=== PATIENT | male | born 1990 | race Caucasian/White ===

== ENCOUNTER 2024-09-14 18:24 | Emergency (ER) | payer OTHER, SELFPAY ==
[2024-09-14 18:30] VITALS: BP 138/91
--- NOTE | 2024-09-14 19:02 | ED.GENMED ---
History of Present Illness
General
Chief Complaint: Musculo-Skeletal Complaint
Source: patient
Exam Limitations: none
Time Seen by Provider: 09/14/24 18:50
History of Present Illness
History of Present Illness:
See MDM
Past History
Past History
ED Past Medical History: None, Psychiatric and Other
ED Past Surgical History: Other (Umbilical fistula)
Social History
Tobacco: Non-smoker
Alcohol: None
Drug: None
Personal: Other
Living: with family
Employment: Employed
Family History
Family History: Other
Phy Exam
Physical Exam
Physical Exam:
See MDM
Course
Orders/Labs/Results
Orders:
Orders
09/14/24 19:01
Cyclobenzaprine HCl [Flexeril] 10 mg PO NOW STA
Cervical Spine 4 or 5 Vw [CR Cervical Spine 4 Or 5 Vw] Urgent
Comment:
Reason For Exam: posterior neck pain
Vital Signs
Initial and Last Documented VS:
Initial Vital Signs
Temp Pulse Resp BP Pulse Ox
98.1 F 75 16 138/91 98
09/14/24 18:30 09/14/24 18:30 09/14/24 18:30 09/14/24 18:30 09/14/24 18:30
Last Documented Vital Signs
Temp Pulse Resp BP Pulse Ox
98.1 F 75 16 138/91 98
09/14/24 18:30 09/14/24 18:30 09/14/24 18:30 09/14/24 18:30 09/14/24 18:30
MDM/Problems Addressed
Differential Diagnosis Includes:
HPI and MDM Narrative:
33-year-old male presenting for evaluation of posterior neck pain. This occurred Thursday after he did heavy lifting. [place] the day, he noticed worsening pain. He did have 1 episode where the pain was tingling in his right arm. Motrin and ice are
helping somewhat.
On exam, there is spasm to his right paracervical musculature. There is no anterior neck pain. He has no neurodeficits in either upper extremity. Will give dose of Flexeril
Physical exam
General: Well appearing and non-toxic
HEENT: protecting airway
Neck: supple. Mild tenderness to right paracervical musculature
CV: No evidence of cyanosis
Resp: No accessory muscle use
Abd: Non-distended
Extremities: No deformities. Both arms are neurovascularly intact with 5/5 muscle strength
Neuro: alert
Psych: Normal affect
Skin: Intact
Problems Addressed including Acute and Chronic Conditions affecting care:
1. Cervical radiculopathy
Acuity: acute
Prognosis: stable
Details: Will obtain x-ray and start Flexeril. Patient states he set up appointment with [facility] in 3 weeks
Updates
Cervical x-ray negative. Patient feels comfortable going home
Differential Diagnosis (but not limited to): Neck spasm, cervical cardiopathy, herniated disc
Testing considered: EKG but this appears musculature
Drug therapy (if applicable): OTC meds, please see d/c instruction regarding Rx drugs
Amount and/or Complexity of Data Reviewed
Clinical info obtained from: Patient
External data reviewed: N/A
Labs I independently reviewed (but not limited to): N/A
Radiology: x-ray independently reviewed: Cervical x-ray negative
Pulse Ox: not hypoxic
EKG independently reviewed: N/A
Nuclear Worker Technician: N/A
Critical Care: N/A
Risk of Complication:
Social Determinants of health: Good social support
Discussed with other providers: N/A
Escalation of Care includes Admit/Obs: After being observed in the Emergency Department, pt stable for discharge.
Occasional wrong word or 'sound a like' substitutions may have occurred due to the inherent limitations of voice recognition software. Read the chart carefully and recognize, using context, where substitutions have occurred.
*Critical Care Note
Total Time (30-74mins, 75-104mins- exclusive of procedures): Not Applicable
ED Attending Note
-
Portions of this chart may have been created with voice recognition software.� Occasional wrong word or��sound alike� substitutions may have occurred due to the inherent limitations of voice recognition software.
Discharge Plan
Departure
Patient Disposition: Home (Routine Discharge)
Date of Disposition: 09/14/24
Time of Disposition: 20:16
Patient with high blood pressure during this ER visit?: No
Discharge Problem:
Cervical radiculopathy
Instructions: Radiculopathy (DC)
Prescriptions:
New
metaxalone 800 mg tablet
800 mg PO TID PRN (Reason: muscle pain) Qty: 14 0RF
Activity Restrictions/Additional Instructions:
Please return for any worsening symptoms.
You may return at any time if you have further concerns.
Please follow up with your doctor at the first available appointment, preferably this week.
Please keep your orthopedic appointment if symptoms persist.
Thank you for choosing [facility].
Discharge Date and Time
Print Language: CZECH
[2024-09-14] MEDS: FLEXERIL 10 MG PO (19:06)
== END 2024-09-14 20:33 | disposition home or self-care (01) ==
LOC: EMR 18:24
PROVIDERS: EMERGENCY PHYSICIAN Student in an Organized Health Care Education/Training Program
DX: M54.12 Radiculopathy, cervical region (principal)
CPT/HCPCS: 99283; 72050